=== PATIENT | female | born 1940 | race Caucasian/White ===

== ENCOUNTER 2017-07-18 08:37 | Emergency (ER) | payer MEDICARE, OTHER ==
[2017-07-18 09:15] VITALS: BP 142/82
--- NOTE | 2017-07-20 21:49 | UC ---
Abdominal Pain Female HPI - HPI Summary HPI Summary: 77 year old female presents with complains of rectal bleeding and diarrhea after eating beets. - History of Current Complaint Chief Complaint: UCGI Stated Complaint: BLOOD IN STOOL Time Seen by Provider: 07/18/17 09:27 Hx Obtained From: Patient Onset/Duration: Sudden Onset Severity Initially: Moderate Severity Currently: Moderate Pain Intensity: 0 Pain Scale Used: 0-10 Numeric Allergies/Adverse Reactions: Allergies Allergy/AdvReac Type Severity Reaction Status Date / Time No Known Allergies Allergy Verified 07/18/17 09:10 Home Medications: Home Medications traZODone TAB* [Desyrel TAB*] 25 mg PO BEDTIME 07/18/17 [History Confirmed 07/18] PMH/Surg Hx/FS Hx/Imm Hx Previously Healthy: Yes - Surgical History Surgical History: Yes Surgery Procedure, Year, and Place: RIGHT SHOULDER SX. HYSTERECTOMY. BLADDER REPAIR. CATARACT AND CORNEAL TRANSPLANTS B/L. T&A. TUBAL - Family History Known Family History: Positive: Cardiac Disease - Social History Alcohol Use: a glass of red wine daily with dinner Substance Use Type: None Smoking Status (MU): Former Smoker Length of Time of Smoking/Using Tobacco: in college When Did the Patient Quit Smoking/Using Tobacco: 50 YRS AGO - Immunization History Most Recent Influenza Vaccination: June 2017 Review of Systems Constitutional: Negative Skin: Negative Eyes: Negative ENT: Negative Respiratory: Negative Cardiovascular: Negative Gastrointestinal: Other - rectal bleeeding Genitourinary: Negative Motor: Negative Neurovascular: Negative Musculoskeletal: Negative Neurological: Negative Psychological: Negative All Other Systems Reviewed And Are Negative: Yes Physical Exam Triage Information Reviewed: Yes Vital Signs: Initial Vital Signs Temp 36.8 C 07/18/17 09:08 Pulse 98 07/18/17 09:08 Resp 16 07/18/17 09:08 BP 142/82 07/18/17 09:08 Pulse Ox 96 07/18/17 09:08 Vital Signs Reviewed: Yes Eye Exam: Normal ENT Exam: Normal Dental Exam: Normal Neck exam: Normal Neck: Positive: 1 Respiratory Exam: Normal Cardiovascular Exam: Normal Abdominal Exam: Normal Musculoskeletal Exam: Normal Neurological Exam: Normal Psychological Exam: Normal Skin Exam: Normal Abd Pain Female Course/Dx - Differential Dx/Diagnosis Provider Diagnoses: rectal bleeding. diarrhea Discharge - Discharge Plan Condition: Stable Disposition: OTHER Discharge Disposition Comment: patient suggested to go to the er if rectal bleeedings worsen Referrals: Brock [place],Khanh [Primary Care Provider] - Additional Instructions: patient suggested to go to the er if rectal bleed continues.
== END 2017-07-18 09:41 ==
LOC: UCCORT 08:37
DX: K92.1 Melena (principal); Z90.710 Acquired absence of both cervix and uterus; Z87.891 Personal history of nicotine dependence
CPT/HCPCS: 82272; 99212; G0463

== ENCOUNTER 2018-09-07 14:43 | Emergency (ER) | payer MEDICARE, BC ==
[2018-09-07 15:12] VITALS: BP 159/96
--- NOTE | 2018-09-07 15:39 | UC ---
Respiratory Complaint HPI - HPI Summary HPI Summary: Pt c/o nasal and chest congestion X 10 days. Pt states that coughing is getting worse and now has generalized back pain. Pt also states that she has a non tender, non pruritic rash on back. - History of Current Complaint Chief Complaint: UCRespiratory Stated Complaint: COUGH,BACK PAIN Time Seen by Provider: 09/07/18 15:16 Hx Obtained From: Patient ?: No Onset/Duration: Gradual Onset, Lasting Days, Still Present Timing: Constant Severity Initially: Mild Severity Currently: Mild Pain Intensity: 7 Character: Cough: Nonproductive Aggravating Factors: Deep Breaths, Recumbent Position Alleviating Factors: Nothing Associated Signs And Symptoms: Positive: URI, Nasal Congestion - Risk Factors Pulmonary Embolism Risk Factors: Negative Cardiac Risk Factors: Negative Pseudomonas Risk Factors: Negative Tuberculosis Risk Factors: Negative - Allergies/Home Medications Allergies/Adverse Reactions: Allergies Allergy/AdvReac Type Severity Reaction Status Date / Time No Known Allergies Allergy Verified 09/07/18 15:12 Home Medications: Home Medications Melatonin/Pyridoxine HCl (B6) [Melatonin Tr 10 mg Tablet] 10 tab PO BEDTIME 06/16 [History Confirmed 09/07/18] Naproxen Sodium [Aleve] 440 mg PO ONCE PRN 09/07/18 [History Confirmed 09/07/18] PMH/Surg Hx/FS Hx/Imm Hx Previously Healthy: Yes Endocrine History: Dyslipidemia - Surgical History Surgical History: Yes Surgery Procedure, Year, and Place: RIGHT SHOULDER SX. HYSTERECTOMY. BLADDER REPAIR. CATARACT AND CORNEAL TRANSPLANTS B/L. T&A. TUBAL - Family History Known Family History: Positive: Cardiac Disease - Social History Occupation: Retired Lives: With Family Alcohol Use: Daily Alcohol Amount: wine Substance Use Type: None Smoking Status (MU): Former Smoker Length of Time of Smoking/Using Tobacco: in college Have You Smoked in the Last Year: No When Did the Patient Quit Smoking/Using Tobacco: 50 YRS AGO - Immunization History Most Recent Influenza Vaccination: June 2017 Review of Systems All Other Systems Reviewed And Are Negative: Yes Constitutional: Positive: Chills, Fatigue Skin: Positive: Rash Eyes: Positive: Negative ENT: Positive: Sinus Congestion Respiratory: Positive: Cough Cardiovascular: Positive: Negative Gastrointestinal: Positive: Negative Genitourinary: Positive: Negative Motor: Positive: Negative Musculoskeletal: Positive: Arthralgia, Myalgia Neurological: Positive: Negative Psychological: Positive: Negative Is Patient Immunocompromised?: No Physical Exam Triage Information Reviewed: Yes Appearance: Ill-Appearing Vital Signs: Initial Vital Signs Temp 97.3 F 09/07/18 15:04 Pulse 98 09/07/18 15:04 Resp 16 09/07/18 15:04 BP 159/96 09/07/18 15:04 Pulse Ox 96 09/07/18 15:04 Vital Signs Reviewed: Yes Eye Exam: Normal ENT: Positive: Nasal congestion Dental Exam: Normal Neck exam: Normal Respiratory: Positive: Decreased breath sounds Cardiovascular Exam: Normal Musculoskeletal Exam: Normal Neurological Exam: Normal Psychological Exam: Normal Skin: Positive: Rashes, Other - generalized dry skin with scattered folliculitis. no tender, non pustualr, no drainage, UC Diagnostic Evaluation - Laboratory O2 Sat by Pulse Oximetry: 96 - Radiology Radiology Interpretation Completed By: Radiologist Summary of Radiographic Findings: IMPRESSION: No active cardiopulmonary disease is noted. Respiratory Course/Dx - Differential Dx/Diagnosis Differential Diagnosis/HQI/PQRI: Bronchitis Provider Diagnosis: Bronchitis Discharge - Sign-Out/Discharge Documenting (check all that apply): Patient Departure All imaging exams completed and their final reports reviewed: Yes - Discharge Plan Condition: Stable Disposition: HOME Prescriptions: Azithromycin TAB* [Zithromax TAB (Z-TIMUR) 250 mg #6 tabs] 2 tab PO .TODAY, THEN 1 DAILY #1 timur Benzonatate CAP* [Tessalon 100 MG CAP*] 200 mg PO Q8H PRN #30 cap PRN Reason: Cough predniSONE TAB* [Deltasone 20 MG TAB*] 20 mg PO DAILY #4 tab Patient Education Materials: Acute Bronchitis (ED) Referrals: Khanh Gutiérrez MD [Primary Care Provider] - If Needed - Billing Disposition and Condition Condition: STABLE Disposition: Home
== END 2018-09-07 16:08 | disposition home or self-care (01) ==
LOC: UCCORT 14:43
DX: J40 Bronchitis, not specified as acute or chronic (principal); Z87.891 Personal history of nicotine dependence
CPT/HCPCS: 71046; 99212; G0463

== ENCOUNTER 2019-05-06 11:48 | Emergency (ER) | payer MEDICARE, BC ==
[2019-05-06 12:36] VITALS: BP 153/85
--- NOTE | 2019-05-06 12:49 | UC ---
Hip/Pelvis Pain - HPI Summary HPI Summary: LEFT HIP PAIN FOR 4 DAYS. NO FALLS OR INJURY. PT STATES HER TOES ARE USUALLY NUMB- SHE HAS NEUROPATHY. PT ALSO ADDS THAT SHE HAS BEEN TAKING HER HUSBANDS METFORMIN TO LOOSE WEIGHT WITHOUT AN RX. PT ADVISED TO STOP TAKING MED WITHOUR HER PCP'S RECCOMENDATION. - History Of Current Complaint Chief Complaint: UCLowerExtremity Stated Complaint: LEFT HIP PAIN Time Seen by Provider: 05/06/19 12:22 Hx Obtained From: Patient ?: No Onset/Duration: Sudden Onset, Lasting Days Pain Intensity: 4 Location: Discrete At: - posterior aspect of the hip joint Character Of Pain: Aching Aggravating Factor(s): Movement Alleviating Factor(s): Rest, Position Associated Signs And Symptoms: Positive: Negative - Allergies/Home Medications Allergies/Adverse Reactions: Allergies Allergy/AdvReac Type Severity Reaction Status Date / Time No Known Allergies Allergy Verified 05/06/19 12:16 Home Medications: Home Medications Calcium Carbonate/Vitamin D3 [Oyster Shell Calcium 500+] 1 chw PO DAILY [History Confirmed 05/06/19] Cyanocobalamin (Vitamin B-12) [Vitamin B-12] 1,000 mcg PO 05/06/19 [History] Magnesium [Magnesium Elemental] 30 mg PO DAILY 05/06/19 [History Confirmed 05/06] Medium Chain Triglycerides [Mct Oil] 1 cap PO DAILY 05/06/19 [History Confirmed 05/06/19] Naproxen Sod/Diphenhydramine [Aleve PM 220-25 mg] 12 tab PO BEDTIME PRN [History Confirmed 05/06/19] Turmeric 400 mg PO DAILY 05/06/19 [History Confirmed 05/06/19] metFORMIN* [Glucophage 500 MG TAB *] 500 mg PO DAILY 05/06/19 [History Confirmed 05/06/19] prednisoLONE 1% OPHTH.SUSP* [Pred Forte 1%*] 1 drop BOTH EYES DAILY 05/06/19 [ History Confirmed 05/06/19] PMH/Surg Hx/FS Hx/Imm Hx Previously Healthy: Yes - Surgical History Surgical History: Yes Surgery Procedure, Year, and Place: RIGHT SHOULDER SX. HYSTERECTOMY. BLADDER REPAIR. CATARACT AND CORNEAL TRANSPLANTS B/L. T&A. TUBAL - Family History Known Family History: Positive: Cardiac Disease - Social History Alcohol Use: Daily Alcohol Amount: wine Substance Use Type: None Smoking Status (MU): Former Smoker Length of Time of Smoking/Using Tobacco: in college Have You Smoked in the Last Year: No When Did the Patient Quit Smoking/Using Tobacco: 50 YRS AGO - Immunization History Most Recent Influenza Vaccination: June 2017 Review of Systems All Other Systems Reviewed And Are Negative: Yes Musculoskeletal: Positive: Arthralgia, Myalgia Neurological: Positive: Weakness Is Patient Immunocompromised?: No Physical Exam Triage Information Reviewed: Yes Appearance: Well-Appearing, Well-Nourished, Pain Distress Vital Signs: Initial Vital Signs Temp 97.9 F 05/06/19 12:25 Pulse 79 05/06/19 12:25 Resp 17 05/06/19 12:25 BP 153/85 05/06/19 12:25 Pulse Ox 97 05/06/19 12:25 Vital Signs Reviewed: Yes Eye Exam: Normal ENT Exam: Normal Dental Exam: Normal Neck exam: Normal Respiratory Exam: Normal Cardiovascular Exam: Normal Abdominal Exam: Normal Bowel Sounds: Positive: Present Musculoskeletal: Positive: ROM Intact, No Edema, Strength Limited @ - hard to bear weight Neurological Exam: Normal Psychological Exam: Normal Skin Exam: Normal Hip Injury Course/Dx - Course Course Of Treatment: hx obtained, exam performed ,meds reviewed, advised patient to stop taking the metformin for risk of hypogylcemia. advised to follow up with her PCP if she is worried about her weight. x ray obtained, prescribed anti inflammatories for the muscle pain and tendonitis - Differential Dx/Diagnosis Differential Diagnosis/HQI/PQRI: Bursitis, Contusion, Dislocation, Sprain, Strain Provider Diagnosis: Trochanteric bursitis of left hip Discharge ED - Sign-Out/Discharge Documenting (check all that apply): Patient Departure All imaging exams completed and their final reports reviewed: No Studies - Discharge Plan Condition: Stable Disposition: HOME Patient Education Materials: Hip Bursitis (ED) Referrals: Khanh Gutiérrez MD [Primary Care Provider] - Additional Instructions: 1. NO medication prescribed. 2. Rest, heat, gentle movement and stretching. 3. Take Aleve, 1-2 tabs twice a day for the next 2 weeks - Billing Disposition and Condition Condition: STABLE Disposition: Home
== END 2019-05-06 13:14 | disposition home or self-care (01) ==
LOC: UCCORT 11:48
DX: M70.62 Trochanteric bursitis, left hip (principal); Y93.9 Activity, unspecified; M16.12 Unilateral primary osteoarthritis, left hip; G62.9 Polyneuropathy, unspecified; Z87.891 Personal history of nicotine dependence
CPT/HCPCS: 99211; G0463

== ENCOUNTER 2019-07-20 11:58 | Emergency (ER) | payer MEDICARE, BC ==
[2019-07-20 12:40] VITALS: BP 142/85
--- NOTE | 2019-07-20 13:02 | ED ---
HPI Chest Pain - HPI Summary HPI Summary: 79 yrold female with the complaint of right upper quadrant pain, and heartburn. Her symptoms are worse at night and last night she had trouble sleeping. The patient had onset of pain three days ago. She has no NV. She has had burning in the chest. She states she has had prior gallstones. She denies NVD. She denies shortness of breath, dizziness. She has a family history of CAD in both of her parents. - History of Current Complaint Chief Complaint: UCChestPain Time Seen by Provider: 07/20/19 12:34 Pain Intensity: 0 - Allergy/Home Medications Allergies/Adverse Reactions: Allergies Allergy/AdvReac Type Severity Reaction Status Date / Time No Known Allergies Allergy Verified 07/20/19 12:27 Home Medications: Home Medications Calcium Carbonate CHEW TAB* [Tums*] 500 mg PO Q1H 07/20/19 [History Confirmed ] Vitamin B Complex CAP* [B Complex CAP*] 1 cap PO DAILY 07/20/19 [History Confirmed 07/20/19] PMH/Surg Hx/FS Hx/Imm Hx - Surgical History Surgery Procedure, Year, and Place: RIGHT SHOULDER SX. HYSTERECTOMY. BLADDER REPAIR. CATARACT AND CORNEAL TRANSPLANTS B/L. T&A. 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, Hx Shingles Denies: Traveled Outside the [place] in Last 30 Days - Family History Known Family History: Positive: Cardiac Disease - Social History Occupation: Retired Alcohol Use: Daily Alcohol Amount: one wine Substance Use Type: Reports: None Smoking Status (MU): Former Smoker Length of Time of Smoking/Using Tobacco: in college Have You Smoked in the Last Year: No Review of Systems Constitutional: Negative Positive: Abdominal Pain All Other Systems Reviewed And Are Negative: Yes Physical Exam Triage Information Reviewed: Yes Vital Signs On Initial Exam: Initial Vitals Temp Pulse Resp BP Pulse Ox 97.6 F 79 20 142/85 96 07/20/19 12:33 07/20/19 12:33 07/20/19 12:33 07/20/19 12:33 07/20/19 12:33 Vital Signs Reviewed: Yes Appearance: Positive: Well-Appearing, No Pain Distress Skin: Positive: Warm, Skin Color Reflects Adequate Perfusion Head/Face: Positive: Normal Head/Face Inspection Eyes: Positive: EOMI ENT: Positive: Normal ENT inspection Neck: Positive: Nontender Respiratory/Lung Sounds: Positive: Clear to Auscultation, Breath Sounds Present Cardiovascular: Positive: RRR. Negative: Murmur Abdomen Description: Positive: Nontender. Negative: Distended Musculoskeletal: Positive: Strength/ROM Intact Neurological: Positive: Sensory/Motor Intact, Alert, Oriented to Person Place, Time, CN Intact II-III, Normal Gait, Speech Normal Psychiatric: Positive: Normal Diagnostics - Vital Signs Vital Signs Temp Pulse Resp BP Pulse Ox 07/20/19 12:33 97.6 F 79 20 142/85 96 - Laboratory Lab Statement: Any lab studies that have been ordered have been reviewed, and results considered in the medical decision making process. Chest Pain Course/Dx - Course Course Of Treatment: 79 yr old with abnormal EKG and no old ones to compare. She has recommended to the ER by ambulance for further work up. She refused and signed out AMA. - Diagnoses Provider Diagnoses: Right upper quadrant abdominal pain, Burning chest pain, Hypertension Discharge ED - Sign-Out/Discharge Documenting (check all that apply): Patient Departure All imaging exams completed and their final reports reviewed: No Studies - Discharge Plan Condition: Good Disposition: AGAINST MEDICAL ADVICE Referrals: Khanh Gutiérrez MD [Primary Care Provider] - - Billing Disposition and Condition Condition: GOOD Disposition: Against Medical Advice
== END 2019-07-20 13:00 | disposition left against medical advice (07) ==
LOC: UCCORT 11:58
DX: R10.11 Right upper quadrant pain (principal); I10 Essential (primary) hypertension; R07.9 Chest pain, unspecified; Z87.891 Personal history of nicotine dependence
CPT/HCPCS: 93005; 99212; G0463